=== PATIENT | female | born 1995 | race Caucasian/White ===

== ENCOUNTER 2018-07-11 06:00 | Inpatient (IN) ==
[2018-07-11] MEDS ORDERED: *HR* Nalbuphine 10 MG/ML AMPUL IVP PRN (06:11)
[2018-07-11] MEDS ORDERED: Metoclopramide 10 MG/2 ML VIAL IVP PRN (06:11)
[2018-07-11] MEDS ORDERED: Famotidine 20 MG/2 ML VIAL IVP PRN (06:11)
[2018-07-11] MEDS ORDERED: Ondansetron 4 MG/2 ML VIAL IVP PRN (06:11)
[2018-07-11] MEDS ORDERED: Naloxone 0.4 MG/ML INJ IVP PRN (06:11)
[2018-07-11] MEDS ORDERED: miSOPROStol 25 MCG TABLET PO PRN (06:11)
[2018-07-11] MEDS ORDERED: Ringers Solution, Lactated 1,000 ML IVC SCH (06:15)
[2018-07-11 06:49] LABS: Basophils % 0.3 %; Eosinophils % 0.1 %; Hematocrit 25.8 % (35.3-44.9); Hemoglobin 8.2 g/dL (11.5-15.4); Immature Granulocytes % 1.6 % (0-4); Lymphocytes # 1.2 K/mcL (0.6-4.6); Lymphocytes % 11.2 %; Mean Corpuscular HGB Conc 31.8 g/dL (31.6-35.5); Mean Corpuscular Hemoglobin 27.1 pg (28.0-33.3); Mean Corpuscular Volume 85.1 fL (83.0-100.0); Mean Platelet Volume 10.7 fL (9.4-12.4); Monocytes # 0.5 K/mcL (0.0-1.3); Monocytes % 4.6 %; Neutrophils # 8.9 K/mcL (1.6-8.9); Nucleated Red Blood Cells 0.6 /100 WBC (0); Platelet Count 241 K/mcL (140-400); Red Blood Count 3.03 M/mcL (3.82-4.97); Red Cell Distribution Width 15.3 % (11.5-14.5); Segmented Neutrophils % 82.2 %
[2018-07-11 06:58] LABS: Amphetamine Screen,Urine Negative ng/mL (Cutoff=1000); Barbiturate Screen,Urine Negative ng/mL (Cutoff=200); Benzodiazepines Screen,Urine Negative ng/mL (Cutoff=300)
[2018-07-11 06:59] LABS: Cannabinoid Screen,Urine Positive ng/mL (Cutoff = 50); Cocaine Screen,Urine Negative ng/mL (Cutoff= 300); Opiate Screen,Urine Negative ng/mL (Cutoff=300); Phencyclidine Screen,Urine Negative ng/mL (Cutoff=25)
[2018-07-11] MEDS ORDERED: miSOPROStol 100 MCG TABLET PO ONE (08:03)
[2018-07-11] MEDS ORDERED: Epidural Premix (fent/bupiv) 110 ML EP SCH (11:00)
--- NOTE | 2018-07-11 12:24 | OB Labor Progress Note ---
Date of Encounter: 07/11/18 Time of Encounter: 12:20 Labor Progress Note - Subjective Subjective: The patient reports that she feels cramping, more intense over the last hour - Vital Signs Vital Signs: Afebrile, vital signs stable - Cervix Cervix: 5/80/-1, vertex with bulgy bag of water - Heart Tones Heart Tones: 130s baseline, CAT 1 - Alamillo Alamillo: Contractions irregular and difficult to monitor on external toco, patient status post oral Cytotec greater than 5 hours - Interventions Interventions: 39 week IUP for induction of labor. Patient noted to have a hemoglobin of 8.2. She had been on oral iron but admits to not doing well with taking it. - Plan Plan: Amniotomy with IUPC placed. Augment with Pitocin as needed. Patient is agreeable to taking blood if needed . Post hemorrhage kit to be available and aggressive action at time of delivery has been discussed and planned.
[2018-07-11] MEDS ORDERED: Lidocaine -MPF 1% 5 ML AMPUL ONE (13:06)
--- NOTE | 2018-07-11 13:37 | Anesthesia Evaluation PreOp ---
Date of Encounter: 07/11/18 Time of Encounter: 13:36 - Past History Planned Operation: NICOLAS Cardiac History: Denies any Significant Hx Pulmonary History: Denies Any Significant HX PROJECT HIRE History: Denies Any Significant HX Other Medical History: Denies Any Significant HX : Yes () Alcohol Use: none Drug use: marijuana Medications and Allergies Folic Acid 1 tab PO DAILY 04/25/18 [History] Allergy/AdvReac Type Severity Reaction Status Date / Time Amoxicillin Allergy Hives Verified 07/01/18 11:49 - Meds/Allergy Pre-op Review Medications Reviewed: Yes Allergies Reviewed: Yes Beta Blockers on Current Med List: No Anesthesia Results - Labs 07/11/18 06:30 Anesthesia Exam O2 Sat Height 1.6 m Weight 82.6 kg Vital Signs Temp Pulse Resp BP 98.8 F 106 16 130/79 07/11/18 06:20 07/11/18 06:20 07/11/18 06:20 07/11/18 06:20 NPO (# of Hours): 4 Pain Scale: 10 Pain Scale Used: Numeric (1 - 10) - HEENT Pupil (Motor): Pupils equal Mallampati: II Teeth: Normal Oral Opening: Greater than 3 - PROJECT HIRE LOC: Oriented PROJECT HIRE Motor: Normal RUE, Normal LUE, Normal RLE, Normal LLE, Normal Face PROJECT HIRE Sensory: Normal: RUE, LUE, RLE, LLE, Face - Cardiac Rhythm: Regular Murmur: None JVD: No Carotid Bruit: No - Pulmonary Breath Sounds: bilateral Clear Respiratory Effort: Symmetrical Anesthesia Assess/Plan ASA Score: 2 Level of consciousness: Cooperative, Oriented Anesthetic Plan: General (plan b), Epidural (plan a) Autologous Blood: Yes Monitoring Plan: Standard Monitors
--- NOTE | 2018-07-11 13:38 | Anesthesia Procedures ---
Addendum entered and electronically signed by Obi Arthur CRNA 07/11/18 16:39: Delivery Date: 07/11/18 Infant Delivery Time: 15:13 Original Note: Date of Encounter: 07/11/18 Time of Encounter: 13:37 Procedures: Anesthesia - Epidural/Spinal Patient ID/Chart reviewed: Yes Patient examined: Yes OB Eval: Gestational age: 39.1 OB Eval: : 3 OB Eval: Hx Para: 1 OB Eval: Dilated at (cm): 5 OB Eval: Contractions: Non-stressed pattern Consent Obtained: Yes Supplemental Oxygen: None/Room Air Site Prep: Aseptic Technique, Sterile prep and drape, Povidone-Iodine 1% Patient position: upright Local Anesthetic: Lidocaine 1% Amount of Local Anesthetic used: 3 Touhy Needle Gauge: 18 Touhy Needle Depth (cm): 6 Catheter Depth at Skin (cm): 20 Test Dose (1.5% Lido + Epi): Volume given (mls): 5 Test Dose Result: Negative Loading Dose: Other: 10ml of epidural pharm bag premix solution Loading Dose Administered: Thru Catheter Infusion Med: 0.125% Bupivacaine w/ 2 mcg/ml Fentanyl Infusion Rate (mls/hr): 15 (4mlq15 min pcea) Catheter Secured in Place: Tegaderm, Tape Interspace Used: L3-L4 Loss of Resistance (KERI): Yes Blood: No CSF: No Paresthesia: No Procedure: pt tolerated procedure well. no complications. vss. fhr stable.
[2018-07-11] MEDS ORDERED: Oxytocin 20 units/ LR 1000 mL 20 UNIT/1,000 ML BAG IVC ONE (14:32)
--- NOTE | 2018-07-11 15:49 | OB/GYN Procedure Note ---
Delivery - Delivery Date: 07/11/18 Provider: Xiomara Guzman Intrapartum events: none Delivery induction: misoprostol Delivery augmentation: rupture of membranes Delivery monitor: external FHT, external uterine, internal uterine Anesthesia: epidural Quantitated Blood Loss: 300 - (s) A Infant Delivery Date: 07/11/18 Delivery Time: 15:13 Presentation: vertex Position: MARIANELA Route of delivery: Gender: Female Viability: Viable Pounds: 7 Ounces: 8 Weight Gram: 3.39 kg at 1 minute: 8 at 5 mins: 9 Shoulder Dystocia: not encountered Placenta: spontaneous Cord: nuchal cord, true knot, 3 umbilical vessels, nuchal reduced - Repair Episiotomy: none Laceration Description: Labial (Bilateral repaired) - Complications Delivery complications: uterine atony Delivery comments: The patient was complete and pushing with one contraction with epidural anesthesia with a spontaneous vaginal delivery of a vigorous female infant weighing 7 lbs. 8 oz. with Apgars of 8 at 1 minute and 9 at 5 minutes. There was a nuchal cord X one that was reduced on the perineum. was delivered in the MARIANELA position and placed on the maternal abdomen. The cord was clamped and cut after pulsations ceased. Pitocin was started following delivery of the . There was a true knot noted. Three-vessel cord was also confirmed. After the cord was clamped and cut and the was transferred to the nursery care team, the placenta was delivered spontaneous and intact. There was some aggressive bleeding. The uterus was massaged and explored internally and there were no retained products of conception. The fundus was noted to be firm. Cytotec was given 200 mcg orally and 200 mcg rectally. The bladder was straight catheterized with a red rubber Valdivia of 200 mL of clear urine. There were bilateral labial lacerations which were 3-4 cm in length and not hemostatic. They were reapproximated with 4-0 Monocryl in a running locking fashion bilaterally. Good hemostasis was assured. There are no vaginal, perineal or cervical lacerations present. Estimated blood loss 300 mL's. Complications none. - Disposition Mom disposition: stable in LDR [place] disposition: stable in LDR
[2018-07-11] MEDS ORDERED: Oxytocin 20 units/ LR 1000 mL 20 UNIT/1,000 ML BAG IVC SCH (17:53)
[2018-07-11] MEDS: Ibuprofen 600 MG TABLET PO SCH (18:55)
[2018-07-11] MEDS: miSOPROStol 100 MCG TABLET PO SCH (18:55)
[2018-07-11] MEDS: Acetaminophen 325 MG TABLET PO SCH (20:01)
[2018-07-12 04:22] LABS: Basophils % 0.2 %; Eosinophils % 0.1 %; Hematocrit 24.2 % (35.3-44.9); Hemoglobin 7.4 g/dL (11.5-15.4); Immature Granulocytes % 1.1 % (0-4); Lymphocytes # 1.7 K/mcL (0.6-4.6); Lymphocytes % 11.9 %; Mean Corpuscular HGB Conc 30.6 g/dL (31.6-35.5); Mean Corpuscular Hemoglobin 26.7 pg (28.0-33.3); Mean Corpuscular Volume 87.4 fL (83.0-100.0); Mean Platelet Volume 10.7 fL (9.4-12.4); Monocytes # 0.7 K/mcL (0.0-1.3); Monocytes % 4.6 %; Neutrophils # 11.7 K/mcL (1.6-8.9); Nucleated Red Blood Cells 0.1 /100 WBC (0); Platelet Count 232 K/mcL (140-400); Red Blood Count 2.77 M/mcL (3.82-4.97); Red Cell Distribution Width 15.4 % (11.5-14.5); Segmented Neutrophils % 82.1 %
[2018-07-12 07:32] VITALS: BP 124/80
[2018-07-12] MEDS: Ibuprofen 600 MG TABLET PO SCH (08:03)
[2018-07-12] MEDS: Acetaminophen 325 MG TABLET PO SCH (08:03)
[2018-07-12] MEDS: miSOPROStol 100 MCG TABLET PO SCH ×2 (08:04)
[2018-07-12] MEDS ORDERED: Prenatal Vit/FA 1 EACH TABLET PO SCH (09:00)
--- NOTE | 2018-07-12 09:25 | Discharge Summary ---
Date of Encounter: 07/12/18 Time of Encounter: 09:23 - Discharge Diagnosis (1) Vaginal delivery Priority: Primary Status: Acute Comments: Stable meeting all PP milestone, pain well managed, bleeding has slowed, , desires discharge (2) anemia Priority: Primary Status: Acute Comments: will discharge home on BID iron - Discharge Medications Prescriptions: New Ferrous Sulfate 325 mg PO BIDWM #60 tablet Acetaminophen [Tylenol] 650 mg PO Q6HR tablet Ibuprofen [Motrin] 600 mg PO Q6HR #60 tablet Docusate [Colace] 100 mg PO BID #30 capsule Discontinued Folic Acid 1 tab PO DAILY Home Medications: Acetaminophen [Tylenol] 650 mg PO Q6HR tablet 07/12/18 [Rx] Breast Pump [BREAST PUMP] 1 each .ROUTE AD #1 each 07/12/18 [Rx] Docusate [Colace] 100 mg PO BID #30 capsule 07/12/18 [Rx] Ferrous Sulfate 325 mg PO BIDWM #60 tablet 07/12/18 [Rx] Ibuprofen [Motrin] 600 mg PO Q6HR #60 tablet 07/12/18 [Rx] Allergies/Adverse Reactions: Allergy/AdvReac Type Severity Reaction Status Date / Time Amoxicillin Allergy Hives Verified 07/01/18 11:49 Data Procedures and tests throughout hospitalization: Laboratory Tests 07/11/18 07/11/18 07/12/18 06:30 06:30 04:01 WBC 10.8 14.3 H RBC 3.03 L 2.77 L Hgb 8.2 L 7.4 L Hct 25.8 L 24.2 L MCV 85.1 87.4 MCH 27.1 L 26.7 L MCHC 31.8 30.6 L RDW 15.3 H 15.4 H Plt Count 241 232 MPV 10.7 10.7 Immature Gran % 1.6 1.1 Seg Neutrophils % 82.2 82.1 Lymphocytes % 11.2 11.9 Monocytes % 4.6 4.6 Eosinophils % 0.1 0.1 Basophils % 0.3 0.2 Neutrophils # 8.9 11.7 H Lymphocytes # 1.2 1.7 Monocytes # 0.5 0.7 Eosinophils # 0.0 0.0 Basophils # 0.0 0.0 Nucleated RBCs/100 WBC 0.6 H 0.1 H Urine Opiates Screen Negative Ur Barbiturates Screen Negative Ur Phencyclidine Scrn Negative Ur Amphetamines Screen Negative U Benzodiazepines Scrn Negative Urine Cocaine Screen Negative U Marijuana (THC) Screen Positive H Ur Drug Screen Interp See Below Labs on day of discharge: Labs from last 24 hours 07/12/18 04:01 WBC 14.3 H RBC 2.77 L Hgb 7.4 L Hct 24.2 L MCV 87.4 MCH 26.7 L MCHC 30.6 L RDW 15.4 H Plt Count 232 MPV 10.7 Immature Gran % 1.1 Seg Neutrophils % 82.1 Lymphocytes % 11.9 Monocytes % 4.6 Eosinophils % 0.1 Basophils % 0.2 Neutrophils # 11.7 H Lymphocytes # 1.7 Monocytes # 0.7 Eosinophils # 0.0 Basophils # 0.0 Nucleated RBCs/100 WBC 0.1 H Date of admission: 07/11/18 06:05 Primary care physician: Isabel Banegas CNP Consults: 07/11/18 17:53 Consult to Radio Division Lieutenant [CONS] Routine Comment: Vaginal delivery, consult needed Discharging clinician: Heidi Daniels Anticipated date of discharge: 07/12/18 - Patient Status Disposition: Home, Self-Care Condition: Good Functional capacity at discharge: independent ambulation Overall status at discharge: patient is progressing back to baseline - Discharge Instructions Instructions: Anemia (GEN) Follow Up With: Isabel Banegas CNP [Primary Care Provider] - Xiomara Guzman MD [Partnered Physician] - - Diet and Activity Activity: resume usual activities as tolerated Diet: regular diet Hospital Course Reason for admission: induction of labor Delivery: Episiotomy: none Laceration: other Other procedures: none complications: none Discharge diagnosis: IUP at term delivered baby: female Hospital course: Delivery - Delivery Date: 07/11/18 Provider: Xiomara Guzman Intrapartum events: none Delivery induction: misoprostol Delivery augmentation: rupture of membranes Delivery monitor: external FHT, external uterine, internal uterine Anesthesia: epidural Quantitated Blood Loss: 300 - (s) Infant A Infant Delivery Date: 07/11/18 Delivery Time: 15:13 Presentation: vertex Position: MARIANELA Route of delivery: Gender: Female Viability: Viable Pounds: 7 Ounces: 8 Weight Gram: 3.39 kg at 1 minute: 8 at 5 mins: 9 Shoulder Dystocia: not encountered Placenta: spontaneous Cord: nuchal cord, true knot, 3 umbilical vessels, nuchal reduced - Repair Episiotomy: none Laceration Description: Labial (Bilateral repaired) - Complications Delivery complications: uterine atony Delivery comments: The patient was complete and pushing with one contraction with epidural anesthesia with a spontaneous vaginal delivery of a vigorous female infant weighing 7 lbs. 8 oz. with Apgars of 8 at 1 minute and 9 at 5 minutes. There was a nuchal cord X one that was reduced on the perineum. was delivered in the MARIANELA position and placed on the maternal abdomen. The cord was clamped and cut after pulsations ceased. Pitocin was started following delivery of the . There was a true knot noted. Three-vessel cord was also confirmed. After the cord was clamped and cut and the was transferred to the nursery care team, the placenta was delivered spontaneous and intact. There was some aggressive bleeding. The uterus was massaged and explored internally and there were no retained products of conception. The fundus was noted to be firm. Cytotec was given 200 mcg orally and 200 mcg rectally. The bladder was straight catheterized with a red rubber [place] of 200 mL of clear urine. There were bilateral labial lacerations which were 3-4 cm in length and not hemostatic. They were reapproximated with 4-0 Monocryl in a running locking fashion bilaterally. Good hemostasis was assured. There are no vaginal, perineal or cervical lacerations present. Estimated blood loss 300 mL's. Complications none. - Disposition Mom disposition: stable in PP and appropriate for discharge Time Attestation: Total time spent providing and/or coordinating discharge services: Time Spent: Less than 30 minutes Exam - Constitutional Vitals: Temp Pulse Resp BP Pulse Ox 98.0 F 82 16 124/80 100 07/12/18 07:32 07/12/18 07:32 07/12/18 07:32 07/12/18 07:32 07/12/18 07:32 General appearance IM: A&O X 3 - Respiratory Respiratory exam: Present: CTAB - Cardiovascular Cardiovascular exam IM: Present: RRR - GI/Abdominal GI/Abdominal exam IM: soft - Uterine Tone: Firm Uterus Position: At Umbilicus - Neurological Exam Neurological exam: normal gait, oriented X3 - Psychiatric Additional comments: reports good mood
== END 2018-07-12 16:00 | disposition home or self-care (01) | DRG 807 ==
LOC: 1NENULAB 06:05 → 1NENUOBS 17:51
PROVIDERS: ADMIT Registered Nurse; ATTEND Registered Nurse

== ENCOUNTER 2021-02-09 19:38 | Inpatient (IN) ==
[2021-02-09 20:23] LABS: Bilirubin,Urine Negative (Negative); Blood,Urine Negative (Negative); Clarity,Urine Clear (Clear); Color,Urine Colorless (Yellow); Glucose,Urine (UA) Normal (Normal); Ketones,Urine Negative (Negative); Leukocyte Esterase,Urine Negative (Negative); Nitrite,Urine Negative (Negative); Protein,Urine Negative (Neg-Trace); Specific Gravity,Urine 1.016 (1.010-1.025); Urobilinogen,Urine Normal (Normal)
[2021-02-09 20:34] LABS: Basophils # 0.1 K/mcL (0.0-0.2); Basophils % 0.4 %; Hematocrit 40.9 % (35.3-44.9); Hemoglobin 13.6 g/dL (11.5-15.4); Immature Granulocytes % 0.3 % (0-4); Lymphocytes # 1.5 K/mcL (0.6-4.6); Lymphocytes % 12.7 %; Mean Corpuscular HGB Conc 33.3 g/dL (31.6-35.5); Mean Corpuscular Hemoglobin 30.6 pg (28.0-33.3); Mean Corpuscular Volume 91.9 fL (83.0-100.0); Mean Platelet Volume 10.8 fL (9.4-12.4); Monocytes # 0.7 K/mcL (0.0-1.3); Monocytes % 5.9 %; Neutrophils # 9.4 K/mcL (1.6-8.9); Platelet Count 296 K/mcL (140-400); Red Blood Count 4.45 M/mcL (3.82-4.97); Red Cell Distribution Width 12.8 % (11.5-14.5); Segmented Neutrophils % 80.7 %; White Blood Count 11.7 K/mcL (4.3-11.1)
[2021-02-09 20:56] LABS: Acetaminophen < 10 mcg/mL (10-20); BUN/Creatinine Ratio 13 (6-26); Blood Urea Nitrogen 15 mg/dL (6-20); Calcium 9.9 mg/dL (8.6-10.3); Carbon Dioxide 25 mEq/L (23-29); Chloride 108 mEq/L (98-107); Ethanol < 10 mg/dL (Less than 10); Glucose 100 mg/dL (70-105); Osmolality,Calculated 295 (280-300); Potassium 3.8 mEq/L (3.5-5.1); Salicylate < 2.5 mg/dL (15.0-30.0); Sodium 142 mEq/L (136-145); eGFR For African Americans > 60 (> 60); eGFR For Non-African Americans 59 (> 60)
[2021-02-09 21:00] LABS: Influenza A PCR Negative (Negative); Influenza B PCR Negative (Negative); Resp. Syncytial Virus PCR Negative (Negative)
[2021-02-09 21:10] LABS: Amphetamine Screen,Urine Negative ng/mL (Cutoff=1000); Barbiturate Screen,Urine Negative ng/mL (Cutoff=200); Benzodiazepines Screen,Urine Negative ng/mL (Cutoff=200); Cannabinoid Screen,Urine Positive ng/mL (Cutoff = 50); Cocaine Screen,Urine Negative ng/mL (Cutoff= 300); Opiate Screen,Urine Negative ng/mL (Cutoff=300); Phencyclidine Screen,Urine Negative ng/mL (Cutoff=25)
[2021-02-09 21:13] LABS: SARS-CoV-2 by PCR (In House) Negative (Negative)
[2021-02-10] MEDS ORDERED: Acetaminophen 325 MG TABLET PO PRN (00:40)
[2021-02-10] MEDS ORDERED: Mag Hydrox/Al Hydrox/Simeth 30 ML UDC PO PRN (00:40)
[2021-02-10] MEDS ORDERED: haloperidoL 5 MG TABLET PO PRN (00:40)
[2021-02-10] MEDS ORDERED: *HR* LORazepam 1 MG TABLET PO PRN (00:40)
[2021-02-10] MEDS ORDERED: *HR* LORazepam 2 MG/ML VIAL IM PRN (00:40)
[2021-02-10] MEDS ORDERED: MOM Conc 10 ML UD.LIQ PO PRN (00:40)
[2021-02-10] MEDS ORDERED: Haloperidol Lactate 5 MG/ML VIAL IM PRN (00:40)
[2021-02-10] MEDS ORDERED: hydrOXYzine pamoate 25 MG CAPSULE PO PRN (01:21)
[2021-02-10] MEDS: traZODone 50 MG TABLET PO PRN ×2 (01:26→22:14)
[2021-02-11 08:54] VITALS: BP 113/83; PULSE 79; TEMP 98.6; O2SAT 96
[2021-02-11] MEDS ORDERED: FLU Vac QV 21-22 (6Month+)/PF 0.5 ML SYRINGE IM ONE (11:50)
[2021-02-11] MEDS ORDERED: Moderna Covid-19 Vaccine 100MCG/0.5mL IM ONE (12:22)
== END 2021-02-11 15:55 | disposition home or self-care (01) | DRG 918 ==
LOC: EMEROOARM 19:38 → 1ANU 02-10 00:22
PROVIDERS: ADMIT Psychiatry & Neurology Psychiatry; ATTEND Psychiatry & Neurology Psychiatry